=== PATIENT | female | born 1965 | race Caucasian/White ===

== ENCOUNTER 2016-03-17 05:51 | Emergency (ER) | payer MEDICAID ==
[~2016-03-17] VITALS: Ht 165.1 cm; Wt 52.2 kg
[~2016-03-17 05:51] MED LIST: BACL10TA PO; CLON1TAB3 PO; DOCU-94 PO; ERGO1CAP6 PO; LEVE100012 PO; ONDA8TAB6 PO; OXYB10TA13 PO; POTA10TA51 PO
[2016-03-17] MEDS ORDERED: SODIUM CHLORIDE 0.9% 1,000 ML IV ONE (07:09)
[2016-03-17] MEDS ORDERED: ONDANSETRON HCL 4 MG/2 ML VIAL IV ONE (07:15)
[2016-03-17 09:55] VITALS: BP 110/72
== END 2016-03-17 09:17 | disposition home or self-care (01) ==
LOC: EDBD 05:51 → ER 05:51
DX: S09.90XA Unspecified injury of head, initial encounter (principal); I48.91 Unspecified atrial fibrillation; M19.90 Unspecified osteoarthritis, unspecified site; K21.9 Gastro-esophageal reflux disease without esophagitis; G62.9 Polyneuropathy, unspecified; G35 Multiple sclerosis; F17.210 Nicotine dependence, cigarettes, uncomplicated; F11.20 Opioid dependence, uncomplicated; Z90.710 Acquired absence of both cervix and uterus; Z98.890 Other specified postprocedural states; Y08.89XA Assault by other specified means, initial encounter; Y93.89 Activity, other specified; Y99.8 Other external cause status; Y92.89 Other specified places as the place of occurrence of the external cause
CPT/HCPCS: 70450; 72100; 96361; 96374; 99284; J2405; J7030

== ENCOUNTER 2016-05-17 13:02 | Inpatient (IN) | payer MEDICAID ==
[~2016-05-17] VITALS: Ht 175.3 cm; Wt 60.9 kg
[2016-05-17 13:41] LABS: Basophils # (auto) 0.1 uL; Basophils % (auto) 1.3 % (0.0-2.0); Eosinophils # (auto) 0 uL; Eosinophils % (auto) 0.5 % (0.0-7.0); Hemoglobin 13.2 g/dL (12.2-16.2); Lymphocytes # (auto) 2.5 uL; Lymphocytes % (auto) 29.7 % (10.0-50.0); Mean Corpuscular Hemoglobin 28.6 pg (28.0-32.0); Mean Corpuscular Hgb Conc. 32.3 g/dL (32.0-36.0); Mean Corpuscular Volume 88.6 fL (80.0-100.0); Mean Platelet Volume 10.3 fL (7.4-10.4); Monocytes # (auto) 0.5 uL; Monocytes % (auto) 5.8 % (0.0-12.0); Neutrophils # (auto) 5.2 uL; Neutrophils % (auto) 62.7 % (37.0-80.0); Platelet Count (auto) 395 10^3/uL (140-450); Red Cell Distribution Width 15.4 % (11.6-16.0); White Blood Cell 8.4 10^3/uL (4.4-10.8)
[2016-05-17] MEDS ORDERED: SODIUM CHLORIDE 0.9% 1,000 ML IVB ONE (13:53)
[2016-05-17 14:03] LABS: Albumin 3.7 g/dL (3.4-5.0); Alkaline Phosphatase 57 U/L (45-117); Anion Gap 10 (5-15); Aspartate Aminotransferase 5 U/L (15-37); BUN/Creatinine Ratio 10.9; Bilirubin, Total 0.4 mg/dL (0.2-1.0); Blood Urea Nitrogen 7 mg/dL (7-18); Carbon Dioxide 25 mmol/L (21-32); Chloride 115 mmol/L (98-107); GFR African American 126 mL/min; GFR Non-African American 104 mL/min; Glucose 88 mg/dL (74-106); Potassium 3.6 mmol/L (3.5-5.1); Sodium 150 mmol/L (136-145); Total Protein 7.3 g/dL (6.4-8.2)
[2016-05-17 14:29] LABS: Magnesium 2.4 mg/dL (1.6-2.6)
[2016-05-17 15:25] LABS: Urine Bilirubin Negative (Negative); Urine Blood Negative /uL (Negative); Urine Color Yellow (Yellow); Urine Glucose Normal (Normal); Urine Ketone Negative (Negative); Urine Mucus FEW (None Seen); Urine Nitrite Negative (Negative); Urine RBC <1 /hpf (0 - 4); Urine Squamous Epithelial Cell FEW /hpf (<5); Urine Urobilinogen Normal (Negative); Urine pH 5.5 (5.0-8.0)
[2016-05-17] MEDS ORDERED: SODIUM CHLORIDE 0.9% 1,000 ML IV ONE (16:00)
[2016-05-17] MEDS ORDERED: ONDANSETRON HCL 4 MG/2 ML VIAL IV PRN (21:30)
[2016-05-17] MEDS ORDERED: MORPHINE SULF INJ 2 MG/ML SYRINGE 1ML IV PRN (21:30)
[2016-05-17] MEDS ORDERED: NITROGLYCERIN 0.4 MG SL TAB SL PRN (21:30)
[2016-05-17] MEDS ORDERED: ACETAMINOPHEN 325 MG TAB PO PRN (21:30)
[2016-05-17] MEDS: FAMOTIDINE 20 MG TAB PO SCH (22:14)
[2016-05-17] MEDS: SODIUM CHLORIDE 0.9% 1,000 ML IV SCH (22:14)
[2016-05-17] MEDS: ASCORBIC ACID 500 MG TAB PO SCH (22:14)
[2016-05-17 23:30] VITALS: BP 119/66
[2016-05-17] MEDS: HYDROcodone-ACET 5/325MG TAB PO PRN (23:43)
[2016-05-18] MEDS: TEMAZEPAM 15 MG CAP PO PRN (00:12)
[2016-05-18] MEDS: HYDROcodone-ACET 5/325MG TAB PO PRN ×5 (04:31→21:27)
[2016-05-18 05:12] VITALS: BP 122/75
[2016-05-18 06:35] LABS: Basophils # (auto) 0.1 uL; Basophils % (auto) 0.8 % (0.0-2.0); Eosinophils # (auto) 0.1 uL; Eosinophils % (auto) 1.3 % (0.0-7.0); Hematocrit 40.2 % (36.0-46.0); Hemoglobin 12.9 g/dL (12.2-16.2); Lymphocytes # (auto) 2.9 uL; Lymphocytes % (auto) 41.1 % (10.0-50.0); Mean Corpuscular Hemoglobin 28.8 pg (28.0-32.0); Mean Corpuscular Hgb Conc. 32.1 g/dL (32.0-36.0); Mean Corpuscular Volume 89.8 fL (80.0-100.0); Mean Platelet Volume 10.7 fL (7.4-10.4); Monocytes # (auto) 0.3 uL; Monocytes % (auto) 4.6 % (0.0-12.0); Neutrophils # (auto) 3.7 uL; Neutrophils % (auto) 52.2 % (37.0-80.0); Platelet Count (auto) 314 10^3/uL (140-450); Red Cell Distribution Width 15.1 % (11.6-16.0); White Blood Cell 7.1 10^3/uL (4.4-10.8)
[2016-05-18 07:19] LABS: Albumin 3.4 g/dL (3.4-5.0); Bilirubin, Total 0.3 mg/dL (0.2-1.0); Calcium 8.4 mg/dL (8.5-10.1); Potassium 3.9 mmol/L (3.5-5.1); Total Protein 6.6 g/dL (6.4-8.2)
[2016-05-18 07:39] VITALS: BP 138/67
[2016-05-18] MEDS: ASCORBIC ACID 500 MG TAB PO SCH ×2 (09:24→21:40)
[2016-05-18] MEDS: ENOXAPARIN SOD 30 MG/0.3 ML SYRINGE SC SCH (09:24)
[2016-05-18] MEDS: ZINC SULFATE 220 MG CAP PO SCH (09:24)
[2016-05-18] MEDS: FAMOTIDINE 20 MG TAB PO SCH ×2 (09:24→21:40)
[2016-05-18] MEDS ORDERED: DOCUSATE SOD 100 MG CAP PO PRN (11:00)
[2016-05-18] MEDS ORDERED: ERGOCALCIFEROL 50,000 UNIT(1.25MG) CAP PO SCH (11:00)
[2016-05-18] MEDS: LEVETIRACETAM 500 MG TAB PO SCH ×2 (12:06→21:40)
[2016-05-18 12:46] VITALS: BP 135/76
[2016-05-18] MEDS: LORazepam 0.5 MG TAB PO PRN ×2 (16:05→22:07)
[2016-05-18] MEDS: SODIUM CHLORIDE 0.9% 1,000 ML IV SCH (16:10)
[2016-05-18 17:13] VITALS: BP 125/66
[2016-05-18 22:50] VITALS: BP 116/67
[2016-05-19] MEDS: HYDROcodone-ACET 5/325MG TAB PO PRN ×4 (02:14→18:56)
[2016-05-19 05:09] VITALS: BP 119/55
[2016-05-19] MEDS: SODIUM CHLORIDE 0.9% 1,000 ML IV SCH ×2 (06:07→09:03)
[2016-05-19 06:38] LABS: Albumin 3.2 g/dL (3.4-5.0); BUN/Creatinine Ratio 14.3; Bilirubin, Total 0.2 mg/dL (0.2-1.0); Calcium 8.3 mg/dL (8.5-10.1); Magnesium 2.2 mg/dL (1.6-2.6); Potassium 3.8 mmol/L (3.5-5.1); Total Protein 6.2 g/dL (6.4-8.2)
[2016-05-19 06:46] LABS: Basophils # (auto) 0.1 uL; Eosinophils # (auto) 0.1 uL; Eosinophils % (auto) 1.4 % (0.0-7.0); Hematocrit 35.4 % (36.0-46.0); Hemoglobin 11.6 g/dL (12.2-16.2); Lymphocytes # (auto) 1.9 uL; Lymphocytes % (auto) 34.4 % (10.0-50.0); Mean Corpuscular Hgb Conc. 32.9 g/dL (32.0-36.0); Mean Corpuscular Volume 88.1 fL (80.0-100.0); Mean Platelet Volume 10.2 fL (7.4-10.4); Monocytes # (auto) 0.3 uL; Monocytes % (auto) 6.4 % (0.0-12.0); Neutrophils # (auto) 3.1 uL; Neutrophils % (auto) 56.8 % (37.0-80.0); Platelet Count (auto) 291 10^3/uL (140-450); Red Cell Distribution Width 14.8 % (11.6-16.0); White Blood Cell 5.4 10^3/uL (4.4-10.8)
[2016-05-19 07:59] VITALS: BP 129/82
[2016-05-19] MEDS: ASCORBIC ACID 500 MG TAB PO SCH ×2 (09:30→21:38)
[2016-05-19] MEDS: ZINC SULFATE 220 MG CAP PO SCH (09:30)
[2016-05-19] MEDS: ENOXAPARIN SOD 30 MG/0.3 ML SYRINGE SC SCH (09:30)
[2016-05-19] MEDS: FAMOTIDINE 20 MG TAB PO SCH ×2 (09:30→21:38)
[2016-05-19] MEDS: LORazepam 0.5 MG TAB PO PRN ×2 (09:30→18:56)
[2016-05-19] MEDS: LEVETIRACETAM 500 MG TAB PO SCH ×2 (09:30→21:38)
[2016-05-19] MEDS: SOD CHL 0.45% 1,000 ML IV SCH (11:40)
[2016-05-19 13:37] VITALS: BP 135/75
[2016-05-19 17:00] VITALS: BP 160/83
[2016-05-19 21:51] VITALS: BP 131/70
[2016-05-20] MEDS: SOD CHL 0.45% 1,000 ML IV SCH ×2 (00:12→14:10)
[2016-05-20] MEDS: HYDROcodone-ACET 5/325MG TAB PO PRN ×5 (00:17→21:11)
[2016-05-20] MEDS: LORazepam 0.5 MG TAB PO PRN ×4 (00:17→22:03)
[2016-05-20 04:51] VITALS: BP 138/67
[2016-05-20 07:37] LABS: BUN/Creatinine Ratio 14.5; Calcium 8.9 mg/dL (8.5-10.1); Magnesium 2.3 mg/dL (1.6-2.6); Potassium 3.3 mmol/L (3.5-5.1)
[2016-05-20 08:00] VITALS: BP 131/75
[2016-05-20 09:00] VITALS: BP 131/75
[2016-05-20] MEDS: FAMOTIDINE 20 MG TAB PO SCH ×2 (10:08→21:10)
[2016-05-20] MEDS: LEVETIRACETAM 500 MG TAB PO SCH ×2 (10:08→21:10)
[2016-05-20] MEDS: ZINC SULFATE 220 MG CAP PO SCH (10:08)
[2016-05-20] MEDS: ASCORBIC ACID 500 MG TAB PO SCH ×2 (10:10→21:11)
[2016-05-20] MEDS: ENOXAPARIN SOD 30 MG/0.3 ML SYRINGE SC SCH (10:11)
[2016-05-20] MEDS ORDERED: POTASSIUM CHL 20 Meq TABLET PO ONE (13:45)
[2016-05-20 13:54] VITALS: BP 160/84
[2016-05-20 17:00] VITALS: BP 161/86
[2016-05-20] MEDS: TEMAZEPAM 15 MG CAP PO PRN (21:11)
[2016-05-20 21:53] VITALS: BP 158/76
[2016-05-21] MEDS: HYDROcodone-ACET 5/325MG TAB PO PRN (03:40)
[2016-05-21 05:17] VITALS: BP 151/78
[2016-05-21 06:04] LABS: Basophils # (auto) 0 uL; Basophils % (auto) 0.7 % (0.0-2.0); Eosinophils # (auto) 0 uL; Eosinophils % (auto) 0.3 % (0.0-7.0); Hematocrit 45.6 % (36.0-46.0); Lymphocytes # (auto) 1.8 uL; Lymphocytes % (auto) 27.2 % (10.0-50.0); Mean Corpuscular Hemoglobin 29.1 pg (28.0-32.0); Mean Corpuscular Hgb Conc. 32.9 g/dL (32.0-36.0); Mean Corpuscular Volume 88.5 fL (80.0-100.0); Mean Platelet Volume 9.8 fL (7.4-10.4); Monocytes # (auto) 0.4 uL; Monocytes % (auto) 6.7 % (0.0-12.0); Neutrophils # (auto) 4.3 uL; Neutrophils % (auto) 65.1 % (37.0-80.0); Platelet Count (auto) 352 10^3/uL (140-450); Red Cell Distribution Width 14.8 % (11.6-16.0); White Blood Cell 6.7 10^3/uL (4.4-10.8)
[2016-05-21] MEDS: SOD CHL 0.45% 1,000 ML IV SCH (06:04)
[2016-05-21 06:25] LABS: Albumin 4.1 g/dL (3.4-5.0); BUN/Creatinine Ratio 12.9; Bilirubin, Total 0.7 mg/dL (0.2-1.0); Calcium 9.2 mg/dL (8.5-10.1); Potassium 3.6 mmol/L (3.5-5.1); Total Protein 7.9 g/dL (6.4-8.2)
[2016-05-21 08:00] VITALS: BP 144/83
[2016-05-21 08:30] VITALS: BP 144/82
[2016-05-21] MEDS: ASCORBIC ACID 500 MG TAB PO SCH (09:43)
[2016-05-21] MEDS: ZINC SULFATE 220 MG CAP PO SCH (09:43)
[2016-05-21] MEDS: FAMOTIDINE 20 MG TAB PO SCH (09:43)
[2016-05-21] MEDS: LEVETIRACETAM 500 MG TAB PO SCH (09:45)
[2016-05-21 10:26] VITALS: BP 148/83
== END 2016-05-21 13:30 | disposition home or self-care (01) | DRG 52 ==
LOC: EDBD 13:02 → ER 13:07 → TELE 13:08 → TELE-WESTW 23:00
PROVIDERS: ADMIT Emergency Medicine; ATTEND Internal Medicine
DX: G92 Toxic encephalopathy (principal); I48.91 Unspecified atrial fibrillation; G62.9 Polyneuropathy, unspecified; R00.1 Bradycardia, unspecified; F31.9 Bipolar disorder, unspecified; G35 Multiple sclerosis; M79.7 Fibromyalgia; K21.9 Gastro-esophageal reflux disease without esophagitis; G40.909 Epilepsy, unspecified, not intractable, without status epilepticus; M19.90 Unspecified osteoarthritis, unspecified site; F17.210 Nicotine dependence, cigarettes, uncomplicated; F41.9 Anxiety disorder, unspecified; Z83.3 Family history of diabetes mellitus; Z81.8 Family history of other mental and behavioral disorders; Z82.49 Family history of ischemic heart disease and other diseases of the circulatory system; Z80.9 Family history of malignant neoplasm, unspecified; Z82.3 Family history of stroke; Z90.710 Acquired absence of both cervix and uterus; Z98.890 Other specified postprocedural states; Z79.899 Other long term (current) drug therapy
CPT/HCPCS: 36415; 51702; 70450; 80048; 80053; 80320; 81001; 82962; 83735; 84443; 84484; 85025; 93005; 93306; 94761; 95819; 96360; 96361; 97001; G0434

== ENCOUNTER 2019-04-22 07:01 | Emergency (ER) | payer MEDICAID ==
[~2019-04-22] VITALS: Ht 172.7 cm; Wt 83.9 kg
[~2019-04-22 07:01] MED LIST changes: -BACL10TA PO; -CLON1TAB3 PO; -ONDA8TAB6 PO; -OXYB10TA13 PO; -POTA10TA51 PO
[2019-04-22 08:43] LABS: Basophils # (auto) 0 uL; Basophils % (auto) 0.6 % (0.0-2.0); Eosinophils # (auto) 0.1 uL; Eosinophils % (auto) 0.9 % (0.0-7.0); Hematocrit 37.8 % (36.0-46.0); Hemoglobin 12.8 g/dL (12.2-16.2); Lymphocytes # (auto) 1.9 uL; Lymphocytes % (auto) 24.8 % (10.0-50.0); Mean Corpuscular Hgb Conc. 33.8 g/dL (32.0-36.0); Mean Corpuscular Volume 88.8 fL (80.0-100.0); Monocytes # (auto) 0.5 uL; Neutrophils # (auto) 5.3 uL; Neutrophils % (auto) 67.7 % (37.0-80.0); Nucleated Red Blood Cells % 0.1 %; Platelet Count (auto) 305 10^3/uL (140-450); Red Blood Cells 4.26 10^6/uL (4.0-5.20); Red Cell Distribution Width 13.6 % (11.8-14.3); White Blood Cell 7.8 10^3/uL (4.4-10.8)
[2019-04-22 08:59] LABS: Albumin 3.5 g/dL (3.4-5.0)
[2019-04-22 09:01] LABS: BUN/Creatinine Ratio 13.2
[2019-04-22 09:04] LABS: Bilirubin, Total 0.2 mg/dL (0.2-1.0)
[2019-04-22 10:15] VITALS: BP 120/72
== END 2019-04-22 10:14 | disposition home or self-care (01) ==
LOC: ER 07:01 → EDBD 07:01 → ER 10:14
DX: N93.9 Abnormal uterine and vaginal bleeding, unspecified (principal); L98.8 Other specified disorders of the skin and subcutaneous tissue; K21.9 Gastro-esophageal reflux disease without esophagitis; Z90.710 Acquired absence of both cervix and uterus; Z79.899 Other long term (current) drug therapy
CPT/HCPCS: 36415; 76856; 80053; 81002; 85025

== ENCOUNTER → 2022-06-05 | Outpatient (CLI) | payer MEDICAID ==
[~2022-06-05] VITALS: Ht 172.7 cm; Wt 77.1 kg
[~2022-06-05] MED LIST changes: +ADENOSINE 65 MG in GIVE UN-DILUTED 0 ML IV ONE
== END | disposition home or self-care (01) ==
LOC: XYW 07:43
PROVIDERS: ATTEND Specialist
DX: R07.89 Other chest pain (principal); R06.02 Shortness of breath
CPT/HCPCS: 78452; 93017; A9500; J0153